=== PATIENT | female | born 2000 | race Caucasian/White ===

== ENCOUNTER 2023-01-10 08:53 | Outpatient (CLI) | payer BC | END 2023-01-10 08:54 | disposition home or self-care (01) | LOC: NM 08:53 | PROVIDERS: ATTEND Student in an Organized Health Care Education/Training Program | DX: M25.551 Pain in right hip (principal); M89.8X9 Other specified disorders of bone, unspecified site; R63.4 Abnormal weight loss | CPT/HCPCS: 78306; A9503 ==